=== PATIENT | female | born 1965 | race Hispanic/Latino ===

== ENCOUNTER 2017-07-31 17:24 | Emergency (ER) | payer MEDICARE, MEDICAID ==
[2017-07-31 18:34] LABS: BASO % 0.5 % (0.0-2.0); EOS # 0.1 K/uL (0.0-0.7); EOS % 0.8 % (0.0-4.0); HEMATOCRIT 40.4 % (34.0-47.0); LYMPH # 2.3 K/uL (1.0-4.3); LYMPH % 34.6 % (20.0-40.0); MEAN CELL VOLUME 91.1 fl (81.0-99.0); MEAN CORPUSCULAR HEMOGLOBIN 29.8 pg (27.0-31.0); MEAN CORPUSCULAR HGB CONC 32.7 g/dL (33.0-37.0); MEAN PLATELET VOLUME 8.3 fl (7.2-11.7); MONO # 0.5 K/uL (0.0-0.8); MONO % 7.1 % (0.0-10.0); NEUT # 3.9 K/uL (1.8-7.0); NRBC % 0.1 % (0.0-0.0); RED CELL DISTRIBUTION WIDTH 13.6 % (11.5-14.5); WHITE BLOOD COUNT 6.8 K/uL (4.8-10.8)
[2017-07-31 18:35] LABS: ALB/GLOB RATIO 1.7 (1.0-2.1); ALCOHOL SERUM < 10 mg/dl (0-10); ALKALINE PHOSPHATASE 87 U/L (38-126); ALT/SGPT 33 U/L (9-52); AST/SGOT 23 U/L (14-36); BILIRUBIN,TOTAL 0.3 mg/dl (0.2-1.3); BLOOD UREA NITROGEN 7 mg/dl (7-17); CARBON DIOXIDE 25 mmol/L (22-30); CHLORIDE 108 mmol/L (98-107); GFR AFRICAN-AMERICAN > 60; GLUCOSE,RANDOM 99 mg/dL (65-105); MAGNESIUM 2.2 MG/DL (1.6-2.3); SODIUM 143 mmol/l (132-148); TOTAL PROTEIN 7.6 G/DL (6.3-8.2)
[2017-07-31 19:05] LABS: THYROID STIMULATING HORMONE 0.29 mIU/ML (0.46-4.68)
[2017-07-31 19:07] LABS: RBC URINE 3 /hpf (0-3); URINE BACTERIA RARE (<OCC); URINE BILIRUBIN NEGATIVE (NEGATIVE); URINE BLOOD NEGATIVE (NEGATIVE); URINE COLOR STRAW (YELLOW); URINE GLUCOSE (UA) NEG (Normal); URINE KETONE NEGATIVE (NEGATIVE); URINE LEUKOCYTE ESTERASE LARGE Leu/uL (Negative); URINE PROTEIN NEGATIVE (NEGATIVE); URINE UROBILINOGEN 0.2-1.0 mg/dL (0.2-1.0)
[2017-07-31 19:09] LABS: WBC URINE 26 /hpf (0-5)
--- NOTE | 2017-07-31 23:50 | ED PDOC ---
HPI: Psych/Substance Abuse Time Seen by Provider: 07/31/17 17:50 Chief Complaint (Nursing): Psychiatric Evaluation Chief Complaint (Provider): AGITATION History Per: Patient (52 Y/O FEMALE SENT FROM [facility] FOR EVALUATION FOR AGITATION/DELUSION/NONCOMPLIANCE WITH MEDICATIONS. PATIENT CALLED 911 AT [facility] TO TAKE HER TO HER FAMILY'S HOME IN [place]. PATIENT STATES SHE WANTS TO GO HOME FOR [employer]. BELIEVES HER FAMILY IS IN WAITING ROOM TO TAKE HER HOME.) Past Medical History Reviewed: Historical Data, Nursing Documentation, Vital Signs Vital Signs: Last Vital Signs Temp 97.7 F 07/31/17 17:29 Pulse 75 07/31/17 17:29 Resp 18 07/31/17 17:29 BP 147/89 07/31/17 17:29 Pulse Ox 98 07/31/17 17:29 - Family History Family History: States: No Known Family Hx - Home Medications Home Medications: Ambulatory Orders Medication Instructions Recorded Benztropine [Cogentin] 2 mg PO DAILY 08/01/17 Docusate [Colace] 200 mg PO DAILY 08/01/17 Levothyroxine [Synthroid] 50 mcg PO DAILY 08/01/17 Counce Carbonate [Counce 900 mg PO DAILY 08/01/17 Carbonate 300MG] Lurasidone HCl [Latuda] 120 mg PO DAILY 08/01/17 Lurasidone Hydrochloride [Latuda] 40 mg DAILY 08/01/17 Magnesium Citrate [Magnesium 200 mg PO DAILY 08/01/17 Citrate] Sennosides [Senna] 17.2 mg PO DAILY 08/01/17 fluPHENAZine [Prolixin] 40 mg PO DAILY 08/01/17 - Allergies Allergies/Adverse Reactions: Allergies Allergy/AdvReac Type Severity Reaction Status Date / Time codeine Allergy RASH Verified 07/31/17 17:29 Penicillins Allergy RASH Verified 07/31/17 17:29 prochlorperazine Allergy VOMITING Verified 07/31/17 17:28 [From Compazine] Review of Systems ROS Statement: Except As Marked, All Systems Reviewed And Found Negative Physical Exam - Reviewed Nursing Documentation Reviewed: Yes Vital Signs Reviewed: Yes - Physical Exam Appears: Positive for: Well, Non-toxic, No Acute Distress, In Acute Distress ( EMOTIONAL DISTRESS) Head Exam: Positive for: ATRAUMATIC, NORMAL INSPECTION, NORMOCEPHALIC Skin: Positive for: Normal Color, Warm, DRY Eye Exam: Positive for: EOMI, Normal appearance, PERRL ENT: Positive for: Normal ENT Inspection Neck: Positive for: Normal, Painless ROM Cardiovascular/Chest: Positive for: Regular Rate, Rhythm Respiratory: Positive for: CNT, Normal Breath Sounds Gastrointestinal/Abdominal: Positive for: Normal Exam, Bowel Sounds, Soft Back: Positive for: Normal Inspection Extremity: Positive for: Normal ROM Neurologic/Psych: Positive for: Alert, Oriented - Laboratory Results Result Diagrams: 07/31/17 18:16 07/31/17 18:16 - ECG O2 Sat by Pulse Oximetry: 98 - Progress ED Course And Treament: MULTIPLE ATTEMPTS MADE TO CALM PATIENT UNSUCCESSFULLY. ATIVAN 2 MG IM X 1 DOSE HALDOL 5 MG IM X 1 DOSE ORDERED PATIENT IS DANGER TO SELF AND OTHERS AT THIS TIME Disposition - Clinical Impression Clinical Impression: Psychotic episode, UTI (urinary tract infection) - Patient ED Disposition Is Patient to be Admitted: Transfer of Care - Disposition Disposition: Transfer of Care Disposition Time: 23:52 Condition: FAIR Forms: [employer] (Ugandan) Patient Signed Over To: Loly Abraham Handoff Comments: CXR/CRISIS CLEARANCE
--- NOTE | 2017-08-01 00:46 | ED PDOC ---
- Laboratory Results Result Diagrams: 07/31/17 18:16 07/31/17 18:16 - ECG O2 Sat by Pulse Oximetry: 97 Pulse Ox Interpretation: Normal - Radiology X-Ray: Viewed By Me X-Ray Interpretation: No Acute Disease - Progress ED Course And Treament: Case endorsed to screenplay writer from [facility] pending crisis eval 1:30 Patient sleeping; no distress 3:00 Patient sleeping; no distress 4:30 Patient sleeping; no distress 5:30 Patient awake, resting comfortably Disposition - Clinical Impression Clinical Impression: Psychotic episode, UTI (urinary tract infection) - POA Present On Arrival: None - Disposition Disposition: Transfer of Care Disposition Time: 06:00 Condition: FAIR Forms: [employer] (French) Patient Signed Over To: Waldemar Beltran Handoff Comments: pending crisis eval
--- NOTE | 2017-08-01 06:24 | ED PDOC ---
- Laboratory Results Result Diagrams: 07/31/17 18:16 07/31/17 18:16 - ECG O2 Sat by Pulse Oximetry: 97 (RA) Pulse Ox Interpretation: Normal Medical Decision Making Medical Decision Makin:00 Patient signed out to the provider by LIDIA Sofia pending crisis evaluation At 7AM pt s/o to Dr Vernon pending [facility] screener eval Reassess -- Scribe Attestation: Documented by Luiz Felix acting as a scribe for Waldemar Beltran MD. Disposition - Clinical Impression Clinical Impression: Psychotic episode, UTI (urinary tract infection) - POA Present On Arrival: None - Disposition Disposition: Transfer of Care Disposition Time: 07:02 Condition: FAIR Forms: [employer] (Icelandic) Patient Signed Over To: Paulette Vernon
--- NOTE | 2017-08-01 07:19 | ED PDOC ---
- Laboratory Results Result Diagrams: 07/31/17 18:16 07/31/17 18:16 - ECG O2 Sat by Pulse Oximetry: 97 (RA) Medical Decision Making Medical Decision Making: Time: 07:00 --Patient signed out to me by Dr. Beltran pending [facility] 1200 pt resting in no distress awaiting [facility] Scribe Attestation: Documented by Lester Jason, acting as a scribe for Paulette Vernon MD. Provider Scribe Attestation: All medical record entries made by the Scribe were at my direction and personally dictated by me. I have reviewed the chart and agree that the record accurately reflects my personal performance of the history, physical exam, medical decision making, and the department course for this patient. I have also personally directed, reviewed, and agree with the discharge instructions and disposition. Disposition - Clinical Impression Clinical Impression: Psychotic episode, UTI (urinary tract infection) - POA Present On Arrival: None - Disposition Disposition: Transfer of Care Disposition Time: 17:00 Condition: FAIR Forms: [employer] [facility] (Martiniquais) Patient Signed Over To: Char Marrero Handoff Comments: pending [facility]
--- NOTE | 2017-08-01 08:40 | RAD ---
HISTORY: ROUTINE COMPARISON: No prior. FINDINGS: LUNGS: No active pulmonary disease. PLEURA: No significant pleural effusion identified, no pneumothorax apparent. CARDIOVASCULAR: Normal. OSSEOUS STRUCTURES: No significant abnormalities. VISUALIZED UPPER ABDOMEN: Normal. OTHER FINDINGS: None. IMPRESSION: No interval acute cardiopulmonary disease appreciated.
[2017-08-01] MEDS ORDERED: DiphenhydrAMINE 50 mg/ml Inj IM STA (11:32)
--- NOTE | 2017-08-01 13:03 | CP.PCM.CON ---
History of Present Illness - History of Present Illness History of Present Illness: Patient (52 Y/O FEMALE SENT FROM [facility] FOR [facility]ALUATION FOR AGITATION/ DELUSION/NONCOMPLIANCE WITH MEDICATIONS. PATIENT CALLED 911 AT [facility] TO TAKE HER TO HER FAMILY'S HOME IN [place]. pt on evaluation in ER angry irritable, pacing paranoid, requesting to be discharged, reported that she has not been compliant with her medications, , Past Patient History - Past Social History Smoking Status: Unknown If Ever Smoked - CARDIAC Hx Cardiac Disorders: No Hx Hypertension: No - PULMONARY Hx Tuberculosis: No - NEUROLOGICAL HX Cerebrovascular Accident: No Hx Seizures: No - ENDOCRINE/METABOLIC Hx Hypothyroidism: Yes - HEMATOLOGICAL/ONCOLOGICAL Hx Cancer: No Hx Human Immunodeficiency Virus (HIV): No - GENITOURINARY/GYNECOLOGICAL Hx Sexually Transmitted Disorders: No - PSYCHIATRIC Hx Depression: Yes Hx Schizophrenia: Yes Hx Substance Use: No (unable to obtain) Meds Allergies/Adverse Reactions: Allergies Allergy/AdvReac Type Severity Reaction Status Date / Time codeine Allergy RASH Verified 07/31/17 17:29 Penicillins Allergy RASH Verified 07/31/17 17:29 prochlorperazine Allergy VOMITING Verified 07/31/17 17:28 [From Compazine] - Medications Medications: Current Medications Ciprofloxacin (Cipro) 500 mg PO Q12 ROCHELLE PRN Reason: Protocol Stop: 08/03/17 09:00 Last Admin: 08/01/17 00:30 Dose: 500 mg Diphenhydramine HCl (Benadryl) 25 mg PO Q6 PRN PRN Reason: Allergy symptoms Haloperidol (Haldol) 2 mg PO Q6 PRN PRN Reason: Agitation Lorazepam (Ativan) 1 mg PO Q6 PRN PRN Reason: Anxiety Physical Exam - Psychiatric Exam Additional comments: pt on evaluation, uncooperative, angry , irritable hypervigilant , demanding to be discharged, paranoid towards credit underwriter, pt refusing medications, needs frequent redirection, speech overproductive loud, thought process disorganized, denied any current command hallucinations denied suicidal or homicidal ideations , alert awake ox3 poor judgement and no insight into illness Results - Vital Signs Recent Vital Signs: Last Vital Signs Temp 98.3 F 08/01/17 08:14 Pulse 69 08/01/17 08:14 Resp 18 08/01/17 08:14 BP 116/74 08/01/17 08:14 Pulse Ox 100 08/01/17 08:14 - Labs Result Diagrams: 07/31/17 18:16 07/31/17 18:16 Labs: Laboratory Results - last 24 hr 07/31/17 07/31/17 07/31/17 18:16 18:16 18:16 WBC 6.8 RBC 4.43 Hgb 13.2 Hct 40.4 MCV 91.1 MCH 29.8 MCHC 32.7 L RDW 13.6 Plt Count 276 MPV 8.3 Neut % (Auto) 57.0 Lymph % (Auto) 34.6 [place] % (Auto) 7.1 Eos % (Auto) 0.8 Baso % (Auto) 0.5 Neut # 3.9 Lymph # 2.3 [place] # 0.5 Eos # 0.1 Baso # 0.0 Sodium 143 Potassium 4.0 Chloride 108 H Carbon Dioxide 25 Anion Gap 14 BUN 7 Creatinine 0.8 Est GFR ( Amer) > 60 Est GFR (Non-Af Amer) > 60 Random Glucose 99 Calcium 10.0 Magnesium 2.2 Total Bilirubin 0.3 AST 23 ALT 33 Alkaline Phosphatase 87 Total Protein 7.6 Albumin 4.8 Globulin 2.8 Albumin/Globulin Ratio 1.7 TSH 3rd Generation 0.29 L Urine Color Urine Clarity Urine pH Ur Specific [place] Urine Protein Urine Glucose (UA) Urine Ketones Urine Blood Urine Nitrate Urine Bilirubin Urine Urobilinogen Ur Leukocyte Esterase Urine RBC (Auto) Urine Microscopic WBC Ur Squamous Epith Cells Urine Bacteria Urine Opiates Screen Urine Methadone Screen Ur Barbiturates Screen Ur Phencyclidine Scrn Ur Amphetamines Screen U Benzodiazepines Scrn [place] 0.4 L U Oth Cocaine Metabols U Cannabinoids Screen Alcohol, Quantitative < 10 07/31/17 07/31/17 18:20 18:20 WBC RBC Hgb Hct MCV MCH MCHC RDW Plt Count MPV Neut % (Auto) Lymph % (Auto) [place] % (Auto) Eos % (Auto) Baso % (Auto) Neut # Lymph # [place] # Eos # Baso # Sodium Potassium Chloride Carbon Dioxide Anion Gap BUN Creatinine Est GFR ( Amer) Est GFR (Non-Af Amer) Random Glucose Calcium Magnesium Total Bilirubin AST ALT Alkaline Phosphatase Total Protein Albumin Globulin Albumin/Globulin Ratio TSH 3rd Generation Urine Color Straw Urine Clarity Clear Urine pH 7.0 Ur Specific [place] 1.005 Urine Protein Negative Urine Glucose (UA) Neg Urine Ketones Negative Urine Blood Negative Urine Nitrate Negative Urine Bilirubin Negative Urine Urobilinogen 0.2-1.0 Ur Leukocyte Esterase Large Urine RBC (Auto) 3 Urine Microscopic WBC 26 H Ur Squamous Epith Cells 1 Urine Bacteria Rare Urine Opiates Screen Negative Urine Methadone Screen Negative Ur Barbiturates Screen Negative Ur Phencyclidine Scrn Negative Ur Amphetamines Screen Negative U Benzodiazepines Scrn Negative [place] U Oth Cocaine Metabols Negative U Cannabinoids Screen Negative Alcohol, Quantitative Assessment & Plan - Assessment and Plan (Free Text) Assessment: schizoaffective disorder bipolar pt at current mental status needs admission for stabilization, danger to self and others due to agitation pt refusing voluntary admission will be referred for screening for involuntary admission start haldol 2mg q6 prn for agitation ativan 1mg q6prn for anxiety benadryl 25mg q6 prn for eps - Date & Time Date: 08/01/17 Time: 13:03
--- NOTE | 2017-08-01 19:27 | ED PDOC ---
- Laboratory Results Result Diagrams: 07/31/17 18:16 07/31/17 18:16 - ECG O2 Sat by Pulse Oximetry: 97 (RA) Medical Decision Making Medical Decision Making: pt had intermittent episodes of paranoia and agitation responding to redirection EKG NSR at 63bpm without ST changes QTc [address] beltran 7pm pending [facility] bed. Disposition - Clinical Impression Clinical Impression: Psychotic episode, UTI (urinary tract infection) - POA Present On Arrival: None - Disposition Disposition: Transfer of Care Disposition Time: 19:26 Condition: FAIR Forms: [facility] ([place]serratian) Patient Signed Over To: Waldemar Beltran
--- NOTE | 2017-08-01 19:31 | ED PDOC ---
- Laboratory Results Result Diagrams: 07/31/17 18:16 07/31/17 18:16 - ECG O2 Sat by Pulse Oximetry: 97 (RA) Medical Decision Making Medical Decision Makin:00 -Patient transferred to [facility] by Dr. Mathew, pending [facility] bed availability [id number] Patient will be transferred to [facility] as a bed is now available. Patient is medically stable for psychiatric admission. Scribe Attestation: Documented by Dora Chambers acting as a scribe for Waldemar Beltran MD. Scribe Attestation: All medical record entries made by the Scribe were at my direction and personally dictated by me. I have reviewed the chart and agree that the record accurately reflects my personal performance of the history, physical exam, medical decision making, and the department course for this patient. I have also personally directed, reviewed, and agree with the discharge instructions and disposition. Disposition - Clinical Impression Clinical Impression: Psychotic episode, UTI (urinary tract infection) - POA Present On Arrival: None - Disposition Disposition: Discharged to [facility] Disposition Time: 00:52 Condition: FAIR Forms: [facility] (Citizen [place])
[2017-08-01 23:44] VITALS: RESP 16
[2017-08-02 02:17] VITALS: BP 118/71; PULSE 66; TEMP 98.2
[2017-08-02 06:33] VITALS: O2SAT 97
--- NOTE | 2017-08-02 11:18 | CARD ---
APPROVED REPORT EKG Measurement Heart [id number] <Conclusion> Normal sinus rhythm Normal ECG
== END 2017-08-02 02:25 | disposition short-term general hospital (02) ==
LOC: H.ER 17:24
DX: N39.0 Urinary tract infection, site not specified (principal); F23 Brief psychotic disorder; Z86.59 Personal history of other mental and behavioral disorders; Z00.8 Encounter for other general examination; Z91.14 Patient's other noncompliance with medication regimen; E03.9 Hypothyroidism, unspecified; Z88.0 Allergy status to penicillin
CPT/HCPCS: 71010; 80053; 80178; 81003; 83735; 84443; 85025; 93005; 96372; 99285; G0480; J1630; J2060